=== PATIENT | female | born 1965 | race African-American/Black ===

== ENCOUNTER 2020-07-14 00:41 | Emergency (ER) | payer OTHER ==
[2020-07-14 01:05] VITALS: BMI 29.2
[2020-07-14 01:58] LABS: BASO % 0.7 % (0-2.0); EOS % 3.3 % (0-4.5); HEMATOCRIT 38.8 % (32.4-45.2); HEMOGLOBIN 13.5 GM/dL (10.7-15.3); LYMPH % 25.2 % (8-40); MCH 30.2 pg (25.7-33.7); MCHC 34.6 g/dl (32.0-36.0); MEAN CELL VOLUME 87.2 fl (80-96); MEAN PLT VOLUME 8.2 fl (7.5-11.1); NEUT % 63.8 % (42.8-82.8); PLATELET COUNT 325 K/MM3 (134-434); RBC 4.45 M/mm3 (3.60-5.2); RDW 15.4 % (11.6-15.6); WHITE BLOOD COUNT 9.4 K/mm3 (4.0-10.0)
[2020-07-14 02:15] LABS: CHLORIDE 105 mmol/L (98-107); SODIUM 142 mmol/L (136-145)
[2020-07-14 02:16] LABS: CALCIUM 9.4 mg/dL (8.5-10.1)
[2020-07-14 02:17] LABS: ALBUMIN 4.2 g/dl (3.4-5.0); ANION GAP 5 MMOL/L (8-16); BLOOD UREA NITROGEN 18.2 mg/dL (7-18); CO2 32 mmol/L (21-32); GLUCOSE,RANDOM 114 mg/dL (74-106); INR 1.07 (0.83-1.09); PROTHROMBIN TIME (PATIENT) 13.1 SEC (9.7-13.0)
[2020-07-14 02:19] LABS: ACTIVATED PTT 27.7 SECONDS (25.2-36.5)
[2020-07-14 02:20] LABS: SGOT/AST 27 U/L (15-37); SGPT/ALT 28 U/L (13-61)
[2020-07-14 02:22] LABS: BILIRUBIN,TOTAL 0.4 mg/dL (0.2-1); TOT PROT 7.7 g/dl (6.4-8.2)
[2020-07-14 02:23] LABS: ALK PHOS 114 U/L (45-117)
[2020-07-14 06:16] VITALS: BP 130/87; PULSE 78; TEMP 98.1
== END 2020-07-14 06:16 | disposition home or self-care (01) ==
LOC: JER 00:41
DX: R56.9 Unspecified convulsions (principal); R55 Syncope and collapse
CPT/HCPCS: 36415; 70450-TC; 71045-TC-FY; 80053; 82962; 84484; 85025; 85610; 85730; 93005; 93010; 99285-25